=== PATIENT | female | born 1980 | race Caucasian/White ===

== ENCOUNTER 2020-09-15 10:00 | Inpatient (IN) | payer MEDICAID, SELFPAY ==
[~2020-09-15] VITALS: Ht 166 cm; Wt 68.5 kg
[2020-09-15 10:28] VITALS: BP_SYST 120
[2020-09-15] MEDS ORDERED: LR 1,000 ML IV ONE (10:45)
[2020-09-15] MEDS ORDERED: CEFAZOLIN 2 GM IVPB PREMIX 50 ML IV ONE (10:45)
[2020-09-15 11:26] LABS: BASOPHILS # (AUTO) 0.1 K/uL (0.0-0.2); BASOPHILS % (AUTO) 0.6 % (0.0-2.0); EOSINOPHILS # (AUTO) 0.1 K/uL (0.0-0.4); EOSINOPHILS % (AUTO) 0.8 % (0.0-4.0); HEMATOCRIT 29.8 % (36-48); HEMOGLOBIN 10.3 g/dL (12.0-16.0); LYMPHOCYTES # (AUTO) 2.5 K/uL (1.0-5.5); LYMPHOCYTES % (AUTO) 19.3 % (20.5-51.5); MEAN CORPUSCULAR HEMOGLOBIN 31 pg (27-31); MEAN CORPUSCULAR HGB CONC 35 % (32-36); MEAN CORPUSCULAR VOLUME 90 fL (79.0-98.0); MONOCYTES # (AUTO) 0.7 K/uL (0.0-1.0); MONOCYTES % (AUTO) 5.7 % (1.7-9.3); NEUTROPHILS # (AUTO) 9.4 K/uL (1.8-7.7); NEUTROPHILS % (AUTO) 73.6 % (40.0-70.0); PLATELET COUNT (AUTO) 165 K/uL (130-430); RED BLOOD CELL COUNT(AUTO) 3.31 MIL/uL (4.2-6.2); RED CELL DISTRIBUTION WIDTH 13.1 % (9.0-15.0); WHITE BLOOD COUNT (AUTO) 12.7 K/uL (4.8-10.8)
[2020-09-15 11:36] LABS: BILIRUBIN,URINE NEGATIVE (NEGATIVE); BLOOD, URINE NEGATIVE (NEGATIVE); CLARITY/URINE CLEAR (CLEAR); COLOR,URINE YELLOW (YELLOW); GLUCOSE,URINE NEGATIVE (NEGATIVE); KETONES,URINE NEGATIVE (NEGATIVE); LEUKOCYTE ESTERASE ,URINE NEGATIVE (NEGATIVE); NITRITE, URINE NEGATIVE (NEGATIVE); PH,URINE 6.5 (5.0-8.0); PROTEIN URINE NEGATIVE (NEGATIVE); UROBILINOGEN,URINE 0.2 (0.2-1.0)
[2020-09-15] MEDS ORDERED: MIDAZOLAM HCL 5 MG/5 ML VIAL IVP ONE (12:10)
[2020-09-15] MEDS ORDERED: LR 1,000 ML IV.SOLN IV ONE (12:10)
[2020-09-15] MEDS ORDERED: BUPIVACAINE /PF 0.75% 10 ML VIAL INJ ONE (12:10)
[2020-09-15] MEDS ORDERED: NS IRRIG SOLN 1000 ML IR ONE (12:10)
[2020-09-15] MEDS ORDERED: MORPHINE SULFATE 10MG/10ML PF AMP EP ONE (12:10)
[2020-09-15] MEDS ORDERED: LR 1,000 ML IV SCH ×2 (12:15→13:15)
[2020-09-15] MEDS ORDERED: SENNOSIDES/DOCUSATE SODIUM 1 TAB TABLET(SENOKOT-S) PO PRN (12:15)
[2020-09-15] MEDS ORDERED: LANOLIN 7 GM OINT. TP PRN (12:15)
[2020-09-15] MEDS ORDERED: OXYTOCIN/0.9 % SODIUM CHLORIDE 1,000 ML IV ONE (12:15)
[2020-09-15] MEDS ORDERED: ANUSOL 1 EA SUPP.RECT (PREPARATION H) RC PRN (12:15)
[2020-09-15] MEDS ORDERED: BISACODYL 10 MG/SUPPOSITORY RC PRN (12:15)
[2020-09-15 13:05] VITALS: BP_SYST 96
[2020-09-15] MEDS ORDERED: MORPHINE SULFATE 10MG/10ML PF AMP SP SCH (13:15)
[2020-09-15] MEDS ORDERED: KETOROLAC TROMETHAMINE 60 MG/2 ML VIAL IM PRN (13:15)
[2020-09-15] MEDS ORDERED: HYDROmorphone 1 MG INJ. 1 MG/ML CARTRIDGE IVP PRN (13:15)
[2020-09-15] MEDS ORDERED: ONDANSETRON HCL 4 MG/2 ML VIAL IVP PRN (13:15)
[2020-09-15] MEDS ORDERED: MEPERIDINE HCL/PF 25 MG/ML DISP.SYRIN IVP PRN (13:15)
[2020-09-15] MEDS ORDERED: KETOROLAC TROMETHAMINE 30 MG VIAL IVP PRN (13:15)
[2020-09-15] MEDS ORDERED: OXYTOCIN 10 UNIT/ML VIAL ONE (14:24)
[2020-09-15] MEDS: ONDANSETRON HCL 4 MG/2 ML VIAL IVP PRN ×2 (14:56→22:49)
[2020-09-15] MEDS: DIPHENHYDRAMINE INJ 50 MG/ML VIAL IM PRN ×2 (15:06→22:50)
[2020-09-15] MEDS: DOCUSATE SODIUM 100 MG CAPSULE PO PRN (19:05)
[2020-09-15] MEDS: SIMETHICONE 80 MG TAB.CHEW PO PRN (19:06)
[2020-09-15] MEDS: KETOROLAC TROMETHAMINE 30 MG VIAL IVP PRN (19:22)
[2020-09-15] MEDS ORDERED: NICOTINE 14 MG/24 HR PATCH.TD24 TD ONE (20:00)
[2020-09-15] MEDS: TEMAZEPAM 15 MG CAPSULE PO PRN (21:36)
[2020-09-16] MEDS: DOCUSATE SODIUM 100 MG CAPSULE PO PRN ×2 (04:23→22:44)
[2020-09-16] MEDS: SIMETHICONE 80 MG TAB.CHEW PO PRN ×2 (04:23→22:44)
[2020-09-16] MEDS: KETOROLAC TROMETHAMINE 30 MG VIAL IVP PRN (04:36)
[2020-09-16 07:17] LABS: BASOPHILS # (AUTO) 0.1 K/uL (0.0-0.2); BASOPHILS % (AUTO) 0.6 % (0.0-2.0); EOSINOPHILS # (AUTO) 0.1 K/uL (0.0-0.4); EOSINOPHILS % (AUTO) 0.9 % (0.0-4.0); HEMATOCRIT 28.2 % (36-48); HEMOGLOBIN 9.4 g/dL (12.0-16.0); LYMPHOCYTES # (AUTO) 1.9 K/uL (1.0-5.5); LYMPHOCYTES % (AUTO) 15.5 % (20.5-51.5); MEAN CORPUSCULAR HEMOGLOBIN 31 pg (27-31); MEAN CORPUSCULAR HGB CONC 34 % (32-36); MEAN CORPUSCULAR VOLUME 92 fL (79.0-98.0); MONOCYTES # (AUTO) 0.6 K/uL (0.0-1.0); MONOCYTES % (AUTO) 5.1 % (1.7-9.3); NEUTROPHILS # (AUTO) 9.4 K/uL (1.8-7.7); NEUTROPHILS % (AUTO) 77.9 % (40.0-70.0); PLATELET COUNT (AUTO) 124 K/uL (130-430); RED BLOOD CELL COUNT(AUTO) 3.08 MIL/uL (4.2-6.2); RED CELL DISTRIBUTION WIDTH 13.3 % (9.0-15.0); WHITE BLOOD COUNT (AUTO) 12.1 K/uL (4.8-10.8)
[2020-09-16] MEDS ORDERED: NICOTINE 14 MG/24 HR PATCH.TD24 TD SCH ×2 (09:00→21:00)
[2020-09-16] MEDS: IBUPROFEN 800 MG TABLET PO PRN ×2 (11:32→17:57)
[2020-09-16] MEDS: OXYCODONE/ACETAMINOPHEN 5-325 TABLET PO PRN ×3 (11:32→22:46)
[2020-09-16] MEDS: TEMAZEPAM 15 MG CAPSULE PO PRN (22:44)
[2020-09-17] MEDS: IBUPROFEN 800 MG TABLET PO PRN ×2 (00:39→14:05)
[2020-09-17] MEDS: OXYCODONE/ACETAMINOPHEN 5-325 TABLET PO PRN ×2 (05:09→10:30)
[2020-09-17] MEDS: DOCUSATE SODIUM 100 MG CAPSULE PO PRN (05:09)
[2020-09-17 19:06] LABS: FTA-Ab (T PALLIDUM) Non Reactive (Non Reactive)
== END 2020-09-17 15:30 | disposition home or self-care (01) | DRG 540 ==
LOC: SPU 10:00
PROVIDERS: ADMIT Obstetrics & Gynecology; ATTEND Obstetrics & Gynecology
PROC: 10D00Z1 Extraction of Products of Conception, Low, Open Approach (ICD-10-PCS; principal; 2020-09-15 12:10)
DX: O34.211 Maternal care for low transverse scar from previous cesarean delivery (principal); Z3A.38 38 weeks gestation of pregnancy; Z37.0 Single live birth; Z20.822 Contact with and (suspected) exposure to COVID-19
CPT/HCPCS: 36415; 81003; 85025; 86592; 86780; 86886; 86900; 86901; 88307; J0690; J1200; J1885; J2250; J2274; J2405; J2590; J3490; J7120